=== PATIENT | female | born 1955 | race Caucasian/White ===

== ENCOUNTER → 2018-05-10 | Outpatient (CLI) | payer MEDICARE | END | disposition home or self-care (01) | LOC: LABWHC1 12:40 | PROVIDERS: ATTEND Physical Medicine & Rehabilitation | DX: M17.0 Bilateral primary osteoarthritis of knee (principal); M53.3 Sacrococcygeal disorders, not elsewhere classified; M79.1 Myalgia; M51.37 Other intervertebral disc degeneration, lumbosacral region; M47.817 Spondylosis without myelopathy or radiculopathy, lumbosacral region; M54.2 Cervicalgia; M54.81 Occipital neuralgia; G44.221 Chronic tension-type headache, intractable | CPT/HCPCS: 36415; 84155 ==

== ENCOUNTER → 2020-06-24 | Outpatient (CLI) | payer MEDICARE ==
--- NOTE | 2020-06-24 17:38 | CT ---
EXAMINATION TYPE: CT abdomen wo/w con DATE OF EXAM: 06/24/2020 COMPARISON: None HISTORY: abn MR, renal mass CT DLP: 2260 mGycm Automated exposure control for dose reduction was used. TECHNIQUE: Helical acquisition of images was performed from the lung bases through the top of iliac crest to include entire abdomen. CONTRAST: Performed with Oral Contrast and without and with IV Contrast, patient injected with 100 mL of Isovue 300. FINDINGS: LUNG BASES: Left basilar subsegmental atelectasis. LIVER/GB: Normal. PANCREAS: Normal. SPLEEN: Normal. ADRENALS: 1.7 cm right adrenal benign adenoma. Left adrenal gland normal. KIDNEYS: The right kidney upper pole posterior cortical 3.9 x 3.9 cm heterogenous, round, expansile m ass with no evidence of intralesional fat or calcification. The mass demonstrates strong enhancement during the cortical medullary phase, and enhancement less than renal parenchyma on nephrogenic phase. There is mild hazy mass border superiorly and peripherally with mild stranding of the perinephric fa t. There is bulging into the renal sinus fat. There is no extension to Gerota's fascia or right adren al gland. No involvement of the renal vein. Left renal exophytic lower pole nonenhancing simple cyst. There is no hydronephrosis bilaterally. BOWEL: Visualized bowel is nonobstructed. LYMPH NODES: No lymphadenopathy. PERITONEUM: No free air. No peritoneal thickening. OSSEOUS STRUCTURES: No aggressive osseous destructive lesions. There is increased thoracic lordosis and diffuse degenerative changes of the visualized spine. VASCULATURE no abdominal aortic aneurysm. IMPRESSION: 1. Right renal upper pole strongly enhancing 3.9 cm solid renal mass most likely represents clear ce ll renal cell carcinoma. Less likely differential includes oncocytoma or lipid poor AML. Hazy border and mild stranding of the perinephric fat is seen concerning for perinephric fat invasion. There is n o involvement of Gerota's fascia, the right adrenal gland, the renal vein, or IVC. No lymphadenopathy is seen. 2. Benign right adrenal adenoma.
== END | disposition home or self-care (01) ==
LOC: RADCTMAIN 12:33
PROVIDERS: ATTEND Family Medicine
DX: N28.89 Other specified disorders of kidney and ureter (principal); D35.01 Benign neoplasm of right adrenal gland
CPT/HCPCS: 82565; 84520; 74170; 36415; Q9967

== ENCOUNTER → 2020-07-17 | Outpatient (CLI) | payer MEDICARE ==
--- NOTE | 2020-07-17 12:40 | XR ---
EXAMINATION TYPE: XR chest 2V DATE OF EXAM: 07/17/2020 COMPARISON: 11/18/14 HISTORY: Shortness of breath TECHNIQUE: Frontal and lateral views of the chest are obtained. FINDINGS: Scattered senescent parenchymal changes noted. Hyperinflation compatible with COPD. Scattered areas of nodular infiltrate may reflect underlying pneumonia. Pulmonary nodules uncertain e tiology difficult to exclude. Heart size is stable. Mediastinal structures are stable and grossly unremarkable. No evidence for hilar prominence. Degenerative changes dorsal spine. IMPRESSION: 1. Scattered areas of nodular infiltrate may reflect underlying pneumonia. Pulmonary nodules uncertai n etiology difficult to exclude.
[2020-07-17 13:44] LABS: Basophils % (A) 1 %; Eosinophils # (A) 0.2 k/uL (0-0.7); Eosinophils % (A) 3 %; HCT 44.1 % (34.0-46.0); HGB 14.3 gm/dL (11.4-16.0); Lymphocytes # (A) 1.3 k/uL (1.0-4.8); Lymphocytes % (A) 23 %; MCH 29.1 pg (25.0-35.0); MCHC 32.4 g/dL (31.0-37.0); MCV 89.8 fL (80.0-100.0); Mean Platelet Volume 8.9; Monocytes # (A) 0.3 k/uL (0-1.0); Monocytes % (A) 6 %; Neutrophils # (A) 3.5 k/uL (1.3-7.7); Neutrophils % (A) 64 %; Platelet Count 476 k/uL (150-450); RBC 4.92 m/uL (3.80-5.40); RDW 14.6 % (11.5-15.5); WBC 5.5 k/uL (3.8-10.6)
[2020-07-17 14:34] LABS: Appearance,Urine Cloudy (Clear); Bilirubin,Urine Negative (Negative); Blood,Urine Negative (Negative); Color,Urine Yellow; Glucose,Urine (UA) Negative (Negative); Hyaline Casts,Urine 3 /lpf (0-2); Ketones,Urine Negative (Negative); Leukocyte Esterase,Urine Trace (Negative); Mucus,Urine Many /hpf; Nitrite,Urine Negative (Negative); PH, Urine 5.5 (5.0-8.0); Protein,Urine Trace (Negative); RBC,Urine 15 /hpf (0-5); Specific Gravity,Urine 1.028 (1.001-1.035); Squamous Epithelial Cell,Urine 1 /hpf (0-4); WBC,Urine 2 /hpf (0-5)
[2020-07-17 15:02] LABS: Potassium 4.6 mmol/L (3.5-5.1)
== END | disposition home or self-care (01) ==
LOC: LABPAT 11:13
PROVIDERS: ATTEND Urology
DX: Z01.818 Encounter for other preprocedural examination (principal); D41.01 Neoplasm of uncertain behavior of right kidney; E27.9 Disorder of adrenal gland, unspecified; R91.8 Other nonspecific abnormal finding of lung field
CPT/HCPCS: 36415; 71046; 80048; 81001; 82088; 82533; 83835; 84244; 85025

== ENCOUNTER 2020-07-24 05:38 | Inpatient (IN) | payer MEDICARE ==
[2020-07-20 13:51] VITALS: BMI 39.3
--- NOTE | 2020-07-23 11:30 | P.HPIHPCON ---
History of Present Illness H&P Date: 07/23/20 Chief Complaint: Right-sided renal mass Ms. Westfall is a 65-year-old female with history of a 3.8 cm right-sided renal mass, the mass is endophytic, with possible invasion into the Gerota's fascia. I discussed with her given the complexity of her mass she most likely we'll have to do a radical nephrectomy. Discussed with her intraoperatively I will evaluate for partial nephrectomy if fesibile. Discussed with her the risk of each approach. I discussed the risk of recurrence, I also discussed risk if she undergoes a radical nephrectomy there is a potential that she'll be on dialysis given that she'll have a solitary kidney. Also discussed the risk from anesthesia, discussed the risk which includes but not limited to injury to nearby organs which includes the liver, bowel and blood vessels. I also discussed there is a potential that this could be a benign tumor though very unlikely, given its appearance. She understood all the risk and agreed to proceed with a robotic radical nephrectomy possible partial. I also discussed with her the finding on chest x-ray which showed possible nodules, but I discussed with her CT abdomen showed no evidence of any nodules. I did discussed that these nodules have potential of being malignant but given the negative CT for less likely but cannot be completely excluded Consent for Procedure: I have explained the operation/procedure to the patient, including the risks, benefits, side effects, alternative therapies (including not receiving the proposed treatment or service), the likelihood of the patient achieving his/her goals, and potential recuperation problems for the procedure/sedation/analgesia, as well as any blood products, if indicated. I also explained to the patient the risks, benefits and side effects of the alternatives, as well as the risks related to not receiving the proposed procedure, care, treatment, or services. - Constitutional Constitutional: Denies chills, Denies fever - Respiratory Respiratory: Denies cough, Denies 7 - Gastrointestinal Gastrointestinal: Denies abdominal pain, Denies diarrhea, Denies nausea, Denies vomiting - Genitourinary (Female) Genitourinary: Denies dysuria, Denies hematuria Past Medical History Past Medical History: Cancer, Chest Pain / Angina, Heart Failure, COPD, Deep Vein Thrombosis (DVT), GERD/Reflux, Myocardial Infarction (OR), Pulmonary Embolus (PE), Renal Disease, Vascular Disorder Additional Past Medical History / Comment(s): kidney cancer, recent UTI treated with antibiotics. per clearance hx of tremors,closed head injury,hypertension and asthma Last Myocardial Infarction Date:: 2007 History of Any Multi-Drug Resistant Organisms: None Reported Past Surgical History: Section, Orthopedic Surgery Additional Past Surgical History / Comment(s): ortho surgery on right foot and both knees. Past Anesthesia/Blood Transfusion Reactions: Postoperative Nausea & Vomiting (PONV) Smoking Status: Never smoker - Past Family History Father Additional Family Medical History / Comment(s): enlarged heart, cartoid artery exploded Medications and Allergies Home Medications Medication Instructions Recorded Confirmed Type ARIPiprazole [Abilify] 2 mg PO DAILY 11/18/14 07/20/20 History Albuterol Sulfate [Proair Hfa] 1 - 2 puff INHALATION AC-SUPPER PRN 11/18/14 07/20/20 History Aspirin 81 mg PO DAILY PRN 11/18/14 07/20/20 History Budesonide-Formot 160-4.5 Mcg 2 puff INHALATION BID 11/18/14 07/20/20 History [Symbicort 160-4.5 Mcg Inhaler] FLUoxetine HCL [PROzac] 40 mg PO BID 11/18/14 07/20/20 History Furosemide [Lasix] 40 mg PO BID 11/18/14 07/20/20 History Meloxicam [Mobic] 7.5 mg PO BID 11/18/14 07/20/20 History Montelukast [Singulair] 10 mg PO DAILY 11/18/14 07/20/20 History Omeprazole [PriLOSEC] 20 mg PO AC-BRKFST 11/18/14 07/20/20 History Potassium Chloride [Klor-Con M10] 10 meq PO HS 11/18/14 07/20/20 History Pravastatin Sodium [Pravachol] 40 mg PO HS 11/18/14 07/20/20 History Pregabalin [Lyrica] 100 mg PO HS 11/18/14 07/20/20 History Tiotropium [place] [Spiriva] 18 mcg IH DAILY 11/18/14 07/20/20 History Zolpidem [Ambien] 10 mg PO HS PRN 11/18/14 07/20/20 History busPIRone HCl [Buspar] 10 mg PO BID 11/18/14 07/20/20 History clonazePAM [KlonoPIN] 2 mg PO TID 11/18/14 07/20/20 History hydrOXYzine HCL [Atarax] 25 mg PO TID PRN 11/18/14 07/20/20 History traZODone HCL 50 mg PO BID 11/18/14 07/20/20 History Atenolol [Tenormin] 50 mg PO BID #60 tab 11/21/14 07/20/20 Rx Levocetirizine Dihydrochloride 10 mg PO DAILY 07/20/20 07/20/20 History [Xyzal] Rivaroxaban [Xarelto] 10 mg PO DAILY 07/20/20 07/20/20 History fentaNYL 50MCG/HR PATCH [Duragesic 50 mcg TRANSDERM Q72H 07/20/20 07/20/20 History 50MCG/HR] Allergies Allergy/AdvReac Type Severity Reaction Status Date / Time cephalexin monohydrate Allergy Rash/Hives Verified 07/20/20 13:30 [From Keflex] codeine Allergy Unknown Verified 07/20/20 13:30 Penicillins Allergy Rash/Hives Verified 07/20/20 13:30 Sulfa (Sulfonamide Allergy Nausea & Verified 07/20/20 13:30 Antibiotics) Vomiting sulfamethoxazole Allergy Nausea & Verified 07/20/20 13:30 [From Bactrim] Vomiting & Diarrhea trimethoprim [From Bactrim] Allergy Nausea & Verified 07/20/20 13:30 Vomiting & Diarrhea Surgical - Exam - General well developed, well nourished, no distress - Respiratory normal expansion, normal respiratory effort - Abdomen Abdomen: soft, non tender - Psychiatric oriented to time, oriented to person, oriented to place Assessment and Plan Assessment: 65-year-old female with a right-sided renal mass Or for robotic radical nephrectomy on the right side possible partial nephrectomy
[~2020-07-24 05:38] MED LIST: CLINDAMYCIN 600 MG in DEXTROSE 5% IN WATER 50 ML IVPB ONE; GENTAMICIN 100 MG in SODIUM CHLORIDE 0.9% 100 ML IVPB ONE
[2020-07-24] MEDS ORDERED: DEXAMETHASONE SOD PHOSPHATE 10 MG/ML 1 ML VIAL IV ONE (05:42)
[2020-07-24] MEDS ORDERED: ONDANSETRON 4 MG/2 ML VIAL IVP ONE (05:42)
[2020-07-24] MEDS ORDERED: LIDOCAINE 1% (10MG/ML) FOR IV START INTRADERMA PRN (05:42)
[2020-07-24] MEDS ORDERED: HYDROmorphone 0.5 MG/0.5 ML SYRINGE IVP PRN (05:42)
[2020-07-24] MEDS ORDERED: HEPARIN SODIUM,PORCINE 5,000 UNIT/ML 1 ML VIAL SQ ONE (06:00)
[2020-07-24] MEDS: LACTATED RINGERS 1,000 ML IV SCH ×2 (06:23→06:32)
[2020-07-24] MEDS ORDERED: HEPARIN SODIUM,PORCINE 5,000 UNIT/ML 1 ML VIAL ONE (06:24)
[2020-07-24] MEDS ORDERED: ONDANSETRON 4 MG/2 ML VIAL ONE ×2 (06:24→08:54)
[2020-07-24] MEDS ORDERED: MIDAZOLAM 2 MG/2 ML VIAL ONE (08:54)
[2020-07-24] MEDS ORDERED: ROCURONIUM BROMIDE 10 MG/ML 5 ML VIAL IV ONE (08:54)
[2020-07-24] MEDS ORDERED: PROPOFOL 10 MG/ML 20 ML VIAL IV ONE (08:54)
[2020-07-24] MEDS ORDERED: SUCCINYLCHOLINE CHLORIDE 100 MG/5 ML SYR IV ONE (08:54)
[2020-07-24] MEDS ORDERED: LIDOCAINE 1% INJ 10MG/ML (20 ML MDV) ONE (08:54)
[2020-07-24] MEDS ORDERED: MANNITOL 25% 12.5 GM/50 ML VIAL ONE (08:54)
[2020-07-24] MEDS ORDERED: fentaNYL (PF) 50 MCG/ML 2 ML AMP ONE (08:54)
[2020-07-24] MEDS ORDERED: ALBUTEROL NEBULIZED 2.5 MG/3 ML INHALATION PRN (09:04)
[2020-07-24] MEDS ORDERED: ONDANSETRON 4 MG/2 ML VIAL IVP PRN (09:06)
[2020-07-24] MEDS ORDERED: BUPIVACAINE (PF) 0.5% 30 ML VIAL SQ ONE ×2 (09:54)
[2020-07-24] MEDS ORDERED: LACTATED RINGERS 1,000 ML IV ONE (10:38)
--- NOTE | 2020-07-24 12:08 | P.OP ---
Date of Procedure: 07/24/20 Preoperative Diagnosis: right renal mass Postoperative Diagnosis: same Procedure(s) Performed: robotic-assisted partial nephrectomy on the right Implants: none Anesthesia: MERE Surgeon: Noel Farris Development Vice President #1: Farshad Giles Estimated Blood Loss (ml): 75 Pathology: other (right renal tumor) Condition: stable Disposition: PACU Indications for Procedure: Ms. Westfall is a 65-year-old female with history of a 3.8 cm right-sided renal mass, the mass is endophytic, with possible invasion into the Gerota's fascia. I discussed with her given the complexity of her mass she most likely we'll have to do a radical nephrectomy. Discussed with her intraoperatively I will evaluate for partial nephrectomy if fesibile. Discussed with her the risk of each approach. I discussed the risk of recurrence, I also discussed risk if she undergoes a radical nephrectomy there is a potential that she'll be on dialysis given that she'll have a solitary kidney. Also discussed the risk from anesthesia, discussed the risk which includes but not limited to injury to nearby organs which includes the liver, bowel and blood vessels. I also discussed there is a potential that this could be a benign tumor though very unlikely, given its appearance. She understood all the risk and agreed to proceed with a robotic radical nephrectomy possible partial. I also discussed with her the finding on chest x-ray which showed possible nodules, but I discussed with her CT abdomen showed no evidence of any nodules. I did discussed that these nodules have potential of being malignant but given the negative CT for less likely but cannot be completely excluded Operative Findings: right-sided upper pole renal tumor, more than 70% endophytic Description of Procedure: The patient was taken to the operating room . General anesthesia was induced. She was prepped and draped in sterile fashion, and was placed in modified flank position . All pressure points were padded. The abdominal insufflation was achieved with the Veress needle. A 8 mm camera port was placed. Robotic trocars and title assistant ports were placed under direct vision. a 5 mm liver retractor was placed. . The robot was docked into place. she had adhesions along the right upper quadrant that were taken down. The colon was mobilized medially by incising along the white line of Toldt. Next the duodenum was kocherized. At this time the vena cava was exposed. Next the ureter was retracted anteriorly off the psoas muscle. Dissection proceeded cranially towards the renal hilum. the renal artery and the vein were exposed and the surrounding tissue was dissected off of them to prepare them for clamping. At this time the incision was made along the Gerota's fat and the kidney was completely defatted. At this time the tumor was visualized and the tumor edges could be defined from normal parenchyma. Given this finding decision was made to attempt partial nephrectomy. The tumor edges were scored using cautery. At this time a 2 bulldog clamps was placed at the artery followed by bulldog clamp was placed at the vein. The tumor was enucleated sharply with the use of point cautery at points of bleeding. The area of defect was closed in 2 layers using 3-0V lock for the inner layer followed by a 2-0V lock for the outer layer ensuring that the the defect was closed. Hemo-clipp was placed once the stitches were taken out of the capsule. At this time the clamps were removed and there was no evidence of bleeding from the kidney. At this time Gerona fat posteriorly and inferiorly were reapproximated using 3-0V lock to ensure that the kidneys this pexied in place. tumor was placed in a bag. Hemostatic agents was placed at the surgical bed. BRE drain was placed through the fourth arm. At this time the robot was de-docked. The the fascia at title assistant port was closed using the Guzman [place]. Skin was closed with subcuticular sutures and dermabond. The patient was awoken from general anesthesia in stable condition. Please refer to the final pathology report for final diagnosis
[2020-07-24] MEDS: methocarbamoL 750 MG TAB PO SCH ×3 (14:15→23:48)
[2020-07-24] MEDS: D5-0.45% NACL WITH KCL 20MEQ/L 1,000 ML IV SCH ×3 (16:01→23:58)
[2020-07-24] MEDS: HYDROmorphone 1 MG/ML 1 ML SYRINGE IVP PRN ×2 (16:01→19:14)
[2020-07-24] MEDS: HEPARIN SODIUM,PORCINE 5,000 UNIT/ML 1 ML VIAL SQ SCH ×2 (16:01→23:48)
[2020-07-24] MEDS: clonazePAM 1 MG TAB PO SCH ×2 (17:30→23:47)
[2020-07-24 17:47] LABS: HGB 13.4 gm/dL (11.4-16.0); Hypochromasia Slight; MCH 28.8 pg (25.0-35.0); MCHC 31.1 g/dL (31.0-37.0); MCV 92.5 fL (80.0-100.0); Mean Platelet Volume 8.8; Platelet Count 349 k/uL (150-450); RBC 4.65 m/uL (3.80-5.40); RDW 14.6 % (11.5-15.5); WBC 12.3 k/uL (3.8-10.6)
[2020-07-24] MEDS: SYMBICORT 160-4.5 MCG INHALER INHALATION SCH (19:46)
[2020-07-24] MEDS ORDERED: POTASSIUM CHLORIDE ER 10 MEQ TAB.ER.PRT PO SCH (21:00)
[2020-07-24] MEDS: PREGABALIN 100 MG CAP PO SCH (21:16)
[2020-07-24] MEDS: FLUoxetine HCL 20 MG CAP PO SCH (21:16)
[2020-07-24] MEDS: MELOXICAM 7.5 MG TAB PO SCH (21:16)
[2020-07-24] MEDS: atenoloL 50 MG TAB PO SCH (21:17)
[2020-07-24] MEDS: traZODone HCL 50 MG TAB PO SCH (21:17)
[2020-07-24] MEDS: busPIRone HCl 10 MG TAB PO SCH (21:17)
[2020-07-24] MEDS: PRAVASTATIN SODIUM 40 MG TAB PO SCH (21:17)
[2020-07-25] MEDS: HYDROmorphone 1 MG/ML 1 ML SYRINGE IVP PRN ×2 (00:23→05:02)
[2020-07-25 07:03] LABS: HCT 37.9 % (34.0-46.0); HGB 12.1 gm/dL (11.4-16.0); MCH 29.5 pg (25.0-35.0); Mean Platelet Volume 9.5; Platelet Count 351 k/uL (150-450); RBC 4.11 m/uL (3.80-5.40); WBC 11.9 k/uL (3.8-10.6)
[2020-07-25 07:11] LABS: Calcium 8.2 mg/dL (8.4-10.2); Potassium 5.3 mmol/L (3.5-5.1)
[2020-07-25] MEDS: SYMBICORT 160-4.5 MCG INHALER INHALATION SCH ×2 (08:32→19:02)
[2020-07-25] MEDS: IPRATROPIUM 0.5 MG/2.5 ML NEBU INHALATION SCH ×4 (08:32→19:02)
[2020-07-25] MEDS: D5-0.45% NACL WITH KCL 20MEQ/L 1,000 ML IV SCH (08:35)
[2020-07-25] MEDS: MELOXICAM 7.5 MG TAB PO SCH ×2 (08:36→21:00)
[2020-07-25] MEDS: MONTELUKAST 10 MG TAB PO SCH (08:36)
[2020-07-25] MEDS: PANTOPRAZOLE 40 MG TABLET PO SCH (08:36)
[2020-07-25] MEDS: busPIRone HCl 10 MG TAB PO SCH ×2 (08:37→21:00)
[2020-07-25] MEDS: traZODone HCL 50 MG TAB PO SCH ×2 (08:37→21:00)
[2020-07-25] MEDS: FAMOTIDINE 20 MG TAB PO SCH (08:37)
[2020-07-25] MEDS: LORATADINE 10 MG TAB PO SCH (08:37)
[2020-07-25] MEDS: atenoloL 50 MG TAB PO SCH ×2 (08:37→20:54)
[2020-07-25] MEDS: clonazePAM 1 MG TAB PO SCH ×3 (08:37→21:00)
[2020-07-25] MEDS: methocarbamoL 750 MG TAB PO SCH ×4 (08:38→21:21)
[2020-07-25] MEDS: HEPARIN SODIUM,PORCINE 5,000 UNIT/ML 1 ML VIAL SQ SCH ×3 (08:38→23:22)
[2020-07-25] MEDS: ARIPiprazole 2 MG TAB PO SCH (08:38)
[2020-07-25] MEDS: FLUoxetine HCL 20 MG CAP PO SCH ×2 (09:02→21:00)
--- NOTE | 2020-07-25 09:06 | P.PN ---
Subjective Progress Note Date: 07/25/20 Principal diagnosis: POD #1, s/p right partial nephrectomy The patient underwent a right partial nephrectomy yesterday. Her condition is stable. She is afebrile with stable vital signs. Urinalysis was good. She reports incisional discomfort. She has not yet ambulated. She tolerated a small amount of breakfast. Objective - Vital Signs Vital signs: Vital Signs Temp 97.7 F 07/25/20 07:00 Pulse 58 L 07/25/20 08:50 Resp 14 07/25/20 07:00 BP 90/55 07/25/20 07:00 Pulse Ox 92 L 07/25/20 07:00 Intake & Output 07/24/20 07/25/20 07/25/20 18:59 06:59 18:59 Intake Total 2106.5 2000 Output Total 445 3585 Balance 1661.5 -1585 Intake: IV 2106.5 Intake, IV Titration 2000 Amount D5-0.45% NaCl with KCl 2000 20Meq/l 1,000 ml @ 125 mls/hr IV .Q8H [facility] Rx#: [id number] Output: Drainage 45 85 Right Lower Abdomen 45 85 Urine 300 3500 Estimated Blood Loss 100 Other: Voiding Method Indwelling Catheter Indwelling Catheter - Constitutional General appearance: Present: cooperative, no acute distress - Gastrointestinal Gastrointestinal Comment(s): Soft, non-distended. Incisions clean, dry, and intact. - Psychiatric Psychiatric: Present: A&O x's 3 - Labs CBC & Chem 7: 07/25/20 05:25 07/25/20 05:25 Labs: Abnormal Lab Results - Last 24 Hours (Table) 07/24/20 07/25/20 07/25/20 Range/Units 17:36 05:25 05:25 WBC 12.3 H 11.9 H (3.8-10.6) k/uL Sodium 136 L (137-145) mmol/L Potassium 5.3 H (3.5-5.1) mmol/L Glucose 189 H (74-99) mg/dL Calcium 8.2 L (8.4-10.2) mg/dL Assessment and Plan (1) Right renal mass Current Visit: Yes Status: Acute Code(s): N28.89 - OTHER SPECIFIED DISORDERS OF KIDNEY AND URETER SNOMED Code(s): 937969910 Plan: The Escudero catheter will be removed. Potassium supplementation will be held. Ambulation and pulmonary toilet was stressed.
[2020-07-25] MEDS: DEXTROSE 5%-0.45% NACL 1,000 ML IV SCH ×2 (10:03→21:03)
[2020-07-25] MEDS: PRAVASTATIN SODIUM 40 MG TAB PO SCH (21:00)
[2020-07-25] MEDS: PREGABALIN 100 MG CAP PO SCH (21:00)
[2020-07-25] MEDS: LACTATED RINGERS 1,000 ML IV SCH (22:09)
[2020-07-26 03:03] VITALS: TEMP 98.1
[2020-07-26] MEDS: DEXTROSE 5%-0.45% NACL 1,000 ML IV SCH (05:12)
[2020-07-26] MEDS: IPRATROPIUM 0.5 MG/2.5 ML NEBU INHALATION SCH ×2 (07:32→10:39)
[2020-07-26] MEDS: SYMBICORT 160-4.5 MCG INHALER INHALATION SCH (07:32)
[2020-07-26] MEDS: HEPARIN SODIUM,PORCINE 5,000 UNIT/ML 1 ML VIAL SQ SCH (08:03)
[2020-07-26 08:04] LABS: Calcium 8.2 mg/dL (8.4-10.2); Potassium 4.4 mmol/L (3.5-5.1)
[2020-07-26] MEDS: MONTELUKAST 10 MG TAB PO SCH (08:04)
[2020-07-26] MEDS: FLUoxetine HCL 20 MG CAP PO SCH (08:04)
[2020-07-26] MEDS: busPIRone HCl 10 MG TAB PO SCH (08:04)
[2020-07-26] MEDS: PANTOPRAZOLE 40 MG TABLET PO SCH (08:04)
[2020-07-26] MEDS: MELOXICAM 7.5 MG TAB PO SCH (08:04)
[2020-07-26] MEDS: FAMOTIDINE 20 MG TAB PO SCH (08:05)
[2020-07-26] MEDS: traZODone HCL 50 MG TAB PO SCH (08:05)
[2020-07-26] MEDS: clonazePAM 1 MG TAB PO SCH (08:05)
[2020-07-26] MEDS: methocarbamoL 750 MG TAB PO SCH ×2 (08:05→13:07)
[2020-07-26] MEDS: LORATADINE 10 MG TAB PO SCH (08:05)
[2020-07-26] MEDS: atenoloL 50 MG TAB PO SCH (08:05)
[2020-07-26] MEDS: ARIPiprazole 2 MG TAB PO SCH (08:06)
[2020-07-26 08:18] VITALS: BP 106/65; PULSE 70; RESP 19
--- NOTE | 2020-07-26 10:38 | P.DS ---
Providers Date of admission: 07/24/20 05:38 Expected date of discharge: 07/26/20 Attending physician: Noel Farris MD Primary care physician: Shey Harrison - Discharge Diagnosis(es) (1) Right renal mass Current Visit: Yes Status: Acute Hospital Course: On the day of admission, the patient underwent a robotic-assisted laparoscopic right partial nephrectomy. The procedure was difficult, but successful and preserving the normal portion of the kidney. The postoperative course was unremarkable. The patient remained afebrile with stable vital signs throughout her course. On the first postoperative day, the Escudero catheter was removed and she began ambulating. On the second postoperative day, she was tolerating diet and ambulating. Her pain was controlled with Mobitz. The abdomen was soft and non-distended. The incisions were clean and dry. BRE drainage was minimal. Procedures: Robotic-assisted laparoscopic right partial nephrectomy on 07/24/2020 Patient Condition at Discharge: Good Plan - Discharge Summary Discharge Rx Participant: No New Discharge Prescriptions: New Hydrocodone/Acetaminophen [Baxter 5-325] 1 - 2 each PO Q4HR PRN #6 tab PRN Reason: Pain No Action Budesonide-Formot 160-4.5 Mcg [Symbicort 160-4.5 Mcg Inhaler] 2 puff INHALATION BID Montelukast [Singulair] 10 mg PO DAILY Meloxicam [Mobic] 7.5 mg PO BID Aspirin 81 mg PO DAILY PRN PRN Reason: Pain hydrOXYzine HCL [Atarax] 25 mg PO TID PRN PRN Reason: Itching Omeprazole [PriLOSEC] 20 mg PO AC-BRKFST Furosemide [Lasix] 40 mg PO BID FLUoxetine HCL [PROzac] 40 mg PO BID traZODone HCL 50 mg PO BID clonazePAM [KlonoPIN] 2 mg PO TID busPIRone HCl [Buspar] 10 mg PO BID Pregabalin [Lyrica] 100 mg PO HS ARIPiprazole [Abilify] 2 mg PO DAILY Zolpidem [Ambien] 10 mg PO HS PRN PRN Reason: Insomnia Pravastatin Sodium [Pravachol] 40 mg PO HS Tiotropium [place] [Spiriva] 18 mcg IH DAILY Potassium Chloride [Klor-Con M10] 10 meq PO HS Albuterol Sulfate [Proair Hfa] 1 - 2 puff INHALATION AC-SUPPER PRN PRN Reason: Shortness Of Breath Atenolol [Tenormin] 50 mg PO BID #60 tab fentaNYL 50MCG/HR PATCH [Duragesic 50MCG/HR] 50 mcg TRANSDERM Q72H Levocetirizine Dihydrochloride [Xyzal] 10 mg PO DAILY Rivaroxaban [Xarelto] 10 mg PO DAILY amantadine HCL [Amantadine] 1 tab PO DAILY Famotidine [Pepcid] 1 tab PO DAILY Discharge Medication List ARIPiprazole [Abilify] 2 mg PO DAILY 11/18/14 [History] Albuterol Sulfate [Proair Hfa] 1 - 2 puff INHALATION AC-SUPPER PRN 11/18/14 [History] Aspirin 81 mg PO DAILY PRN 11/18/14 [History] Budesonide-Formot 160-4.5 Mcg [Symbicort 160-4.5 Mcg Inhaler] 2 puff INHALATION BID 11/18/14 [History] FLUoxetine HCL [PROzac] 40 mg PO BID 11/18/14 [History] Furosemide [Lasix] 40 mg PO BID 11/18/14 [History] Meloxicam [Mobic] 7.5 mg PO BID 11/18/14 [History] Montelukast [Singulair] 10 mg PO DAILY 11/18/14 [History] Omeprazole [PriLOSEC] 20 mg PO AC-BRKFST 11/18/14 [History] Potassium Chloride [Klor-Con M10] 10 meq PO HS 11/18/14 [History] Pravastatin Sodium [Pravachol] 40 mg PO HS 11/18/14 [History] Pregabalin [Lyrica] 100 mg PO HS 11/18/14 [History] Tiotropium [place] [Spiriva] 18 mcg IH DAILY 11/18/14 [History] Zolpidem [Ambien] 10 mg PO HS PRN 11/18/14 [History] busPIRone HCl [Buspar] 10 mg PO BID 11/18/14 [History] clonazePAM [KlonoPIN] 2 mg PO TID 11/18/14 [History] hydrOXYzine HCL [Atarax] 25 mg PO TID PRN 11/18/14 [History] traZODone HCL 50 mg PO BID 11/18/14 [History] Atenolol [Tenormin] 50 mg PO BID #60 tab 11/21/14 [Rx] Levocetirizine Dihydrochloride [Xyzal] 10 mg PO DAILY 07/20/20 [History] Rivaroxaban [Xarelto] 10 mg PO DAILY 07/20/20 [History] fentaNYL 50MCG/HR PATCH [Duragesic 50MCG/HR] 50 mcg TRANSDERM Q72H 07/20/20 [History] Famotidine [Pepcid] 1 tab PO DAILY 07/24/20 [History] amantadine HCL [Amantadine] 1 tab PO DAILY 07/24/20 [History] Hydrocodone/Acetaminophen [Baxter 5-325] 1 - 2 each PO Q4HR PRN #6 tab 07/26/20 [Rx] Follow up Appointment(s)/Referral(s): Noel Farris MD [STAFF PHYSICIAN] - 1 Week Activity/Diet/Wound Care/Special Instructions: Diet as tolerated. No driving for 1 week. No strenuous activity. Okay to shower on 07/27/2020. Discharge Disposition: HOME SELF-CARE
== END 2020-07-26 14:51 | disposition home or self-care (01) | DRG 658 ==
LOC: 2ORMAIN 05:38 → 4SSUR 12:51
PROVIDERS: ADMIT Urology; ATTEND Urology
PROC: 8E0W4CZ Robotic Assisted Procedure of Trunk Region, Percutaneous Endoscopic Approach (ICD-10-PCS; principal; 2020-07-24 07:30)
PROC: 0TB04ZZ Excision of Right Kidney, Percutaneous Endoscopic Approach (ICD-10-PCS; principal; 2020-07-24 07:30)
DX: C64.1 Malignant neoplasm of right kidney, except renal pelvis (principal); I50.9 Heart failure, unspecified; I10 Essential (primary) hypertension; J44.9 Chronic obstructive pulmonary disease, unspecified; R25.1 Tremor, unspecified; G89.29 Other chronic pain; M54.5 Low back pain; K21.9 Gastro-esophageal reflux disease without esophagitis; I25.2 Old myocardial infarction; Z79.01 Long term (current) use of anticoagulants; Z79.82 Long term (current) use of aspirin; Z79.51 Long term (current) use of inhaled steroids; Z79.899 Other long term (current) drug therapy; Z88.1 Allergy status to other antibiotic agents; Z88.5 Allergy status to narcotic agent; Z88.0 Allergy status to penicillin; Z88.2 Allergy status to sulfonamides; Z98.890 Other specified postprocedural states; Z86.718 Personal history of other venous thrombosis and embolism; Z86.711 Personal history of pulmonary embolism; Z87.440 Personal history of urinary (tract) infections; Z87.828 Personal history of other (healed) physical injury and trauma; Z82.49 Family history of ischemic heart disease and other diseases of the circulatory system
CPT/HCPCS: 80048; 85027; 86850; 86900; 86901; 88307; 88341; 88342; 94640

== ENCOUNTER → 2021-04-13 | Outpatient (CLI) | payer MEDICARE ==
--- NOTE | 2021-04-13 13:12 | CTL ---
EXAMINATION TYPE: CT Low Dose Lung DATE OF EXAM ORDERED: 04/13/2021 HISTORY: . Lung cancer screening CT DLP: 122.[address] CTDI: 4.0 mGy Automated exposure control for dose reduction was used. SCREENING VISIT: Initial study COMPARISON: CTA chest November 18, 2014 TECHNIQUE: Low dose computed tomography scan was performed through the chest at 1 mm thick sections a nd reconstructed images in the coronal plane at [address] DIAGNOSTIC QUALITY: Satisfactory FINDINGS: LUNG NODULES: None. LUNGS: COPD: Severity: Mild Fibrosis: Severity: None Lymph nodes: None Other findings: None RIGHT PLEURAL SPACE: Effusion: None Calcification: None Thickening: None Pneumothorax: None LEFT PLEURAL SPACE: Effusion: None Calcification: None Thickening: None Pneumothorax: None HEART: Heart Size: Normal Coronary calcification: Focal mild to moderate in the LAD Pericardial effusion: None OTHER FINDINGS: Upper abdomen: None Bony thorax: Exaggerated curvature lower thoracic spine Supraclavicular region: None Other: None IMPRESSION: No suspicious nodules. CT LUNG RAD AND CT CHEST RECOMMENDATION: Lung-Rad 1 Negative: Continue annual screening with LDCT in 12 months. S Modifier (other clinically significant findings): None
== END | disposition home or self-care (01) ==
LOC: RADCTMAIN 11:40
PROVIDERS: ATTEND Family Medicine
DX: Z12.2 Encounter for screening for malignant neoplasm of respiratory organs (principal)
CPT/HCPCS: 71271

== ENCOUNTER → 2022-07-07 | Outpatient (CLI) | payer MEDICARE ==
--- NOTE | 2022-07-08 08:19 | CT ---
EXAMINATION TYPE: CT abdomen pelvis w con CT DLP: 2670.40 mGycm, Automated exposure control for dose reduction was used. DATE OF EXAM: 07/07/2022 7:26 PM COMPARISON: CT abdomen pelvis most recent from 06/24/2020, CT chest 11/18/2014. CLINICAL INDICATION:Female, 67 years old with history of C64.1 N18.9 Z85.528; Renal Cell Cancer TECHNIQUE: Axial CT of the abdomen and pelvis. Sagittal and coronal reformats were created on a [employer] workstation. Contrast used:80 mL of Isovue 300 with IV Contrast, Oral contrast used: with Oral Contrast FINDINGS: LOWER CHEST: Unremarkable ABDOMEN LIVER: Unremarkable GALLBLADDER AND BILE DUCTS: Unremarkable. PANCREAS: Unremarkable. SPLEEN: Unremarkable. ADRENAL GLANDS: Right adrenal nodule measuring 37 Hounsfield units and 1.9 cm is consistent with cynthia gn lipid rich adrenal adenoma when comparing to 11/18/2014. The left adrenal gland is unremarkable. KIDNEYS AND URETERS: Postsurgical changes in the right kidney. There is no evidence of recurrence. No renal calculi are obstructive uropathy. PELVIS BLADDER: Unremarkable REPRODUCTIVE: Unremarkable. ABDOMEN & PELVIS STOMACH AND BOWEL: No evidence of bowel obstruction. Second portion duodenal diverticulum is noted. PERITONEUM: No evidence of pneumoperitoneum or free fluid. VASCULATURE: No evidence of aortic aneurysm. MUSCULOSKELETAL: No acute osseous abnormalities, electrical device with leads entering the spine are present and intact. Multilevel disc degeneration changes are present throughout the spine with osteop hytes, vacuum disc phenomenon and scattered disc space narrowing. Facet joint arthropathy is seen thr oughout the spine most pronounced in the lower lumbar spine LYMPH NODES: No gross evidence for lymphadenopathy. SOFT TISSUE/ABDOMINAL WALL: Small fat-containing umbilical hernia. IMPRESSION: 1. Postsurgical changes to the right kidney superior pole without evidence of recurrence or metastat ic disease. 2. Left adrenal lipid rich benign adenoma present dating back to 11/18/2014. 3. Second portion duodenal diverticulum.
== END | disposition home or self-care (01) ==
LOC: RADCTMAIN 17:31
PROVIDERS: ATTEND Family Medicine
DX: C64.1 Malignant neoplasm of right kidney, except renal pelvis (principal); N18.9 Chronic kidney disease, unspecified
CPT/HCPCS: 82565; 84520; 74177; 36415; Q9967 ×2

== ENCOUNTER 2023-09-14 14:34 | Observation (INO) | payer MEDICARE ==
--- NOTE | 2023-09-14 15:24 | XR ---
EXAMINATION TYPE: XR chest 2V DATE OF EXAM: 09/14/2023 COMPARISON: 07/17/20 HISTORY: Shortness of breath TECHNIQUE: Frontal and lateral views of the chest are obtained. FINDINGS: Scattered senescent parenchymal changes noted. No evidence for infiltrate. No evidence for atelectasis. Heart size is stable. Mediastinal structures are stable and grossly unremarkable. No evidence for hilar prominence. Degenerative changes dorsal spine. IMPRESSION: 1. No evidence for acute pulmonary disease.
--- NOTE | 2023-09-14 15:41 | ED ---
Chest Pain HPI - General Chief Complaint: Chest Pain Stated Complaint: heart attack symptoms Time Seen by Provider: 09/14/23 15:40 Source: patient Mode of arrival: wheelchair Limitations: no limitations - History of Present Illness Initial Comments: 68-year-old female presenting with chief complaint of chest pain. Symptoms started last night. She admits to shortness of breath. Admits to nonproductive cough that she has had for several days prior. Patient states that the pain is sharp and at times goes up her neck. She admits to positive nausea with no vomiting. No lower extremity swelling. No fevers or chills. No palpitations or weakness. - Related Data Home Medications Medication Instructions Recorded Confirmed Albuterol Sulfate [Proair Hfa] 1 - 2 puff INHALATION RT-QID PRN 11/18/14 09/14/23 FLUoxetine HCL [PROzac] 40 mg PO BID 11/18/14 09/14/23 Montelukast [Singulair] 10 mg PO DAILY 11/18/14 09/14/23 Omeprazole [PriLOSEC] 20 mg PO BID 11/18/14 09/14/23 Pravastatin Sodium [Pravachol] 40 mg PO HS 11/18/14 09/14/23 traZODone HCL 50 mg PO HS 11/18/14 09/14/23 Levocetirizine Dihydrochloride 5 mg PO DAILY 07/20/20 09/14/23 [Xyzal] Rivaroxaban [Xarelto] 10 mg PO DAILY 07/20/20 09/14/23 Famotidine [Pepcid] 20 mg PO DAILY 07/24/20 09/14/23 ARIPiprazole [Abilify] 10 mg PO HS 09/14/23 09/14/23 Atenolol [Tenormin] 50 mg PO DAILY 09/14/23 09/14/23 Furosemide [Lasix] 40 mg PO DAILY 09/14/23 09/14/23 Multivitamins, Thera [Multivitamin 1 tab PO DAILY 09/14/23 09/14/23 (formulary)] Potassium Chloride ER [K-Dur 10] 10 meq PO DAILY 09/14/23 09/14/23 Ubidecarenone [Coenzyme Q10] 100 mg PO DAILY 09/14/23 09/14/23 busPIRone HCL 15 mg PO TID 09/14/23 09/14/23 clonazePAM [KlonoPIN] 0.5 mg PO TID 09/14/23 09/14/23 Allergies Allergy/AdvReac Type Severity Reaction Status Date / Time cephalexin monohydrate Allergy Rash/Hives Verified 09/14/23 19:07 [From Keflex] codeine Allergy Unknown Verified 09/14/23 19:07 Penicillins Allergy Rash/Hives Verified 09/14/23 19:07 Sulfa (Sulfonamide Allergy Rash, Verified 09/14/23 19:07 Antibiotics) hives, Nausea & Vomiting & Diarrhea sulfamethoxazole Allergy Rash, Verified 09/14/23 19:07 [From Bactrim] hives, Nausea & Vomiting & Diarrhea trimethoprim [From Bactrim] Allergy Rash, Verified 09/14/23 19:07 hives, Nausea & Vomiting & Diarrhea Review of Systems ROS Statement: Those systems with pertinent positive or pertinent negative responses have been documented in the HPI. ROS Other: All systems not noted in ROS Statement are negative. EKG Findings - EKG Comments: EKG Findings:: Sinus bradycardia ventricular rate 59. MN interval. QRS 102. QT 403. QTC 403. No ST deviation. Past Medical History Past Medical History: Chest Pain / Angina, Heart Failure, COPD, Myocardial Infarction ([place]), Pulmonary Embolus ([place]) Additional Past Medical History / Comment(s): kidney cancer, recent UTI treated with antibiotics. per clearance hx of tremors,closed head injury,hypertension and asthma Last Myocardial Infarction Date:: 2007 History of Any Multi-Drug Resistant Organisms: None Reported Past Surgical History: Section, Orthopedic Surgery Additional Past Surgical History / Comment(s): ortho surgery on right foot and both knees. Past Anesthesia/Blood Transfusion Reactions: Postoperative Nausea & Vomiting (PONV) Past Psychological History: Anxiety, Depression Smoking Status: Never smoker Past Alcohol Use History: None Reported Past Drug Use History: None Reported - Past Family History Father Additional Family Medical History / Comment(s): enlarged heart, cartoid artery exploded General Exam - General Exam Comments Initial Comments: Visual Physical Exam Vital signs reviewed General: Well-appearing, nontoxic, no acute distress. Head: Normocephalic, atraumatic Eyes: PERRLA, EOMI ENT: Airway patent Chest: Nonlabored breathing Skin: No visual rash, normal skin tone Neuro: Alert and oriented 3 Musculoskeletal: No gross abnormalities Limitations: no limitations General appearance: alert, in no apparent distress Head exam: Present: atraumatic, normocephalic, normal inspection Eye exam: Present: normal appearance, EOMI Neck exam: Present: normal inspection, full ROM Respiratory exam: Present: normal lung sounds bilaterally. Absent: respiratory distress, wheezes, rales, rhonchi, stridor Cardiovascular Exam: Present: regular rate, normal rhythm, normal heart sounds. Absent: systolic murmur, diastolic murmur, rubs, gallop, clicks Neurological exam: Present: alert, oriented X3 Psychiatric exam: Present: normal affect, normal mood Skin exam: Present: warm, dry, intact, normal color. Absent: rash Course Vital Signs 09/14/23 09/14/23 14:37 18:02 Temperature 96.9 F L Pulse Rate 66 55 L Respiratory 16 18 Rate Blood Pressure 145/75 123/74 O2 Sat by Pulse 96 95 Oximetry Chest Pain MDM - MDM Was pt. sent in by a medical professional or institution (, PA, STEEL F[employer]ICATING SUPERVISOR, urgent care, hospital, or assisted...) When possible be specific @ -No Did you speak to anyone other than the patient for history (EMS, parent, family, police, friend...)? What history was obtained from this source @ -No Did you review nursing and triage notes (agree or disagree)? Why? @ -I reviewed and agree with nursing and triage notes Were old charts reviewed (outside hosp., previous admission, EMS record, old EKG, old radiological studies, urgent care reports/EKG's, assisted records)? Report findings @ -No old charts were reviewed Differential Diagnosis (chest pain, altered mental status, abdominal pain women, abdominal pain men, vaginal bleeding, weakness, fever, dyspnea, syncope, headache, dizziness, GI bleed, back pain, seizure, CVA, palpatations, mental health, musculoskeletal)? @ -MDM Differential Chest Pain: Stable Angina, Unstable Angina, STEMI, NSTEMI Aortic Dissection, Pneumothorax, Musculoskeletal, Esophageal Spasm GERD, Cholecystitis, Pancreatitis, Zoster This is not meant to be an all-inclusive list. EKG interpreted by me (3pts min.). @ -As above X-rays interpreted by me (1pt min.). @ -Chest x-ray shows no acute process CT interpreted by me (1pt min.). @ -None done U/S interpreted by me (1pt. min.). @ -None done What testing was considered but not performed or refused? (CT, X-rays, U/S, labs)? Why? @ -None What meds were considered but not given or refused? Why? @ -None Did you discuss the management of the patient with other professionals (professionals i.e. DrDarnell, PA, STEEL FAB[employer]ICATING SUPERVISOR, lab, RT, psych nurse, forensic social worker, ticker maintainer, teacher, customer service security officer, caser up)? Give summary @ -I spoke with Dr. Souza who accepted admission Was smoking cessation discussed for >3mins.? @ -No Was critical care preformed (if so, how long)? @ -No Were there social determinants of health that impacted care today? How? (Homelessness, low income, unemployed, alcoholism, drug addiction, transportation, low edu. Level, literacy, decrease access to med. care, skilled nursing, rehab)? @ -No Was there de-escalation of care discussed even if they declined (Discuss DNR or withdrawal of care, Hospice)? DNR status @ -No What co-morbidities impacted this encounter? (DM, HTN, Smoking, COPD, CAD, Cancer, CVA, ARF, Chemo, Hep., AIDS, mental health diagnosis, sleep apnea, morbid obesity)? @ -CAD Was patient admitted / discharged? Hospital course, mention meds given and route, prescriptions, significant lab abnormalities, going to OR and other pertinent info. @ -68-year-old female with history COPD presenting with chief complaint of chest pain that started yesterday. Physical exam is conducted. Patient has essentially negative chest pain workup including negative troponin, EKG, and chest x-ray. She'll be admitted for observation and evaluation by cardiology in the morning. She is agreeable with this plan. I discussed this case with my attending Dr. Davis Undiagnosed new problem with uncertain prognosis? @ -No Drug Therapy requiring intensive monitoring for toxicity (Heparin, Nitro, Insulin, Cardizem)? @ -No Were any procedures done? @ -No Diagnosis/symptom? @ -chest pain Acute, or Chronic, or Acute on Chronic? @ -Acute Uncomplicated (without systemic symptoms) or Complicated (systemic symptoms)? @ -Complicated Side effects of treatment? @ -No Exacerbation, Progression, or Severe Exacerbation? @ -No Poses a threat to life or bodily function? How? (Chest pain, [place], [place], pneumonia, PE, COPD, DKA, ARF, appy, cholecystitis, CVA, Diverticulitis, Homicidal, Suicidal, threat to staff... and all critical care pts) @ -yes Disposition Clinical Impression: Chest pain Disposition: ADMITTED IP TO THIS HOSP Condition: Fair Time of Disposition: 17:28
[2023-09-14 16:04] LABS: Basophils % (A) 0 %; Eosinophils # (A) 0.2 k/uL (0-0.7); Eosinophils % (A) 2 %; HCT 45.7 % (34.0-46.0); Lymphocytes # (A) 1.3 k/uL (1.0-4.8); Lymphocytes % (A) 18 %; MCH 30.8 pg (25.0-35.0); MCHC 32.8 g/dL (31.0-37.0); Mean Platelet Volume 9.5; Monocytes # (A) 0.3 k/uL (0-1.0); Monocytes % (A) 4 %; Neutrophils # (A) 5.7 k/uL (1.3-7.7); Neutrophils % (A) 75 %; Platelet Count 481 k/uL (150-450); RBC 4.86 m/uL (3.80-5.40); RDW 14.8 % (11.5-15.5); WBC 7.6 k/uL (3.8-10.6)
[2023-09-14 16:14] LABS: INR 1.3 (<1.2); Partial Thromboplastin Time 32.2 sec (22.0-30.0); Prothrombin Time 13.2 sec (10.0-12.5)
[2023-09-14 16:25] LABS: ALT 21 U/L (4-34); AST 26 U/L (14-36); African American GFR (CKD) 74 (>60 ml/min/1.73 sqM); Albumin 3.9 g/dL (3.5-5.0); Alkaline Phosphatase 113 U/L (38-126); Anion Gap 10 mmol/L; Blood Urea Nitrogen 23 mg/dL (7-17); Calcium 9.8 mg/dL (8.4-10.2); Carbon Dioxide 25 mmol/L (22-30); Chloride 108 mmol/L (98-107); Glucose 100 mg/dL (74-99); Magnesium 2.1 mg/dL (1.6-2.3); Non-African American GFR(CKD) 65 (>60 ml/min/1.73 sqM); Potassium 4.3 mmol/L (3.5-5.1); Sodium 143 mmol/L (137-145); Total Bilirubin 0.8 mg/dL (0.2-1.3)
[2023-09-14] MEDS ORDERED: NALOXONE 0.4 MG/ML 1 ML VIAL IV PRN (17:26)
[2023-09-14] MEDS ORDERED: ACETAMINOPHEN TAB 325 MG TAB PO PRN (17:26)
[2023-09-14] MEDS ORDERED: ASPIRIN 81 MG PO STA (17:27)
[2023-09-14] MEDS ORDERED: ARIPiprazole 10 MG TAB PO SCH (22:00)
[2023-09-14] MEDS: clonazePAM 0.5 MG TAB PO SCH (22:25)
[2023-09-14] MEDS: busPIRone HCl 5 MG TAB PO SCH (22:25)
[2023-09-15] MEDS: clonazePAM 0.5 MG TAB PO SCH (08:24)
[2023-09-15] MEDS: busPIRone HCl 5 MG TAB PO SCH (08:25)
[2023-09-15] MEDS ORDERED: atenoloL 50 MG TAB PO SCH (09:00)
[2023-09-15] MEDS ORDERED: FLUoxetine HCL 20 MG CAP PO SCH (09:00)
[2023-09-15] MEDS ORDERED: MONTELUKAST 10 MG TAB PO SCH (09:00)
[2023-09-15] MEDS ORDERED: FAMOTIDINE 20 MG TAB PO SCH (09:00)
[2023-09-15] MEDS ORDERED: FUROSEMIDE 40 MG TAB PO SCH (09:00)
[2023-09-15] MEDS ORDERED: LORATADINE 10 MG TAB PO SCH (09:00)
[2023-09-15] MEDS ORDERED: POTASSIUM CHLORIDE ER 10 MEQ TAB.ER.PRT PO SCH (09:00)
[2023-09-15] MEDS ORDERED: RIVAROXABAN 10 MG TAB PO SCH (09:00)
[2023-09-15] MEDS ORDERED: DOBUTamine DRIP for NUC MED 500 MG in DEXTROSE/WATER 1 250ML.BAG IV PRN (09:38)
[2023-09-15 11:19] LABS: Chol/HDL Ratio 3.71 Ratio; LDL Cholesterol,Calculated 64.4 mg/dL (0.0-131.0)
--- NOTE | 2023-09-15 11:53 | CA ---
Dobutamine Stress Echocardiogram Report Dottie Rose Age: 68 Gender: F : 1955 Exam Date: 09/15/2023 10:13 Exam Location: [facility] Ordering Physician: Luisa De Los Santos Referring Physician: Filiberto DELACRUZ Sky Cap: ANAYA, Technologist: Ht (in): 61 Wt (lb): 218 Procedure CPT: Indication: CP ICD-9 Codes: Rhythm: Patient History: Chest pain and shortness of breath Cardiac Medications: Medications in past 24 hours: Contrast: Total Dose (mL): Stress Results Protocol: Dobutamine Peak Dose (???g/kg/min): 30 Duration (min:sec): Atropine:(mg) Target HR: 128 Double Product: [id number] Resting HR: 61 Resting BP: 117 / 62 Peak HR: 129 Peak BP: 167 / 80 Max Predicted HR: 151 85 % Max Predicted HR Stress Summary: BP Response: Reason for Termination: Target HR Cardiac Symptoms: NO SYMPTOMS ECG Analysis Resting EKG: Stress EKG: Arrhythmia: Echo Analysis Base Echo Analysis: Low Echo Anaylsis: Peak Echo Analysis: Recovery Echo: MEASUREMENTS (Male/Female) Normal Values CONCLUSIONS Normal dobutamine stress echo Excellent augmentation of overall LV contractility without developed any wall motion abnormalities Baseline artifact on the EKG Dr. Mike Rivas MD (Electronically Signed) Final Date: 15 September 2023 11:52
--- NOTE | 2023-09-15 12:56 | P.CRDCN ---
History of Present Illness Consult date: 09/15/23 Consult reason: chest pain History of present illness: History of present illness: This is a 68-year-old female with past medical history of hypertension, dyslipidemia, pulmonary embolism in 2007 on Xarelto, gastroesophageal reflux disease. Patient has had shortness of breath and nonproductive cough for the past 7 days. She had onset of chest pain that started night before last in the midsternal area and went out to both sides. Pains been on and off. Last night it started when she walked out of the bathroom. EKG no acute ST-T wave changes Chest x-ray: No acute process WBC 7.6, hemoglobin 15, platelet count 481. INR 1.3. D-dimer 0.53. Sodium 143, potassium 4.3, creatinine 0.91. Troponin negative 3. A1c 5.5. Triglycerides 142, cholesterol 127, LDL 64, HDL 34. Influenza A, influenza B, RSV, Covid 18 not detected. Home cardiac medications: Atenolol 50 mg daily, Lasix 40 mg daily, pravastatin 40 mg at bedtime, Xarelto 10 mg daily, co-every 10 daily Normal dobutamine stress echo Review Of Systems: At the time of my evaluation: Constitutional: No fever, no chills. No weakness, fatigue or lethargy. EENT: No headache. No dizziness. Lungs: Reports shortness of breath, reports cough, no sputum production. No wheezing. Cardiovascular: Reports chest pain, no lower extremity edema. No palpitations. No paroxysmal nocturnal dyspnea. No orthopnea. No lightheadedness or dizziness. No syncopal episodes. Abdominal: No abdominal pain. No nausea, vomiting. No diarrhea. No constipation. No bloody or tarry stools. Genitourinary: No dysuria.. No urinary retention. Musculoskeletal: No myalgias. No muscle weakness, no frequent falls. No back pain. No neck pain. Integumentary: No wounds. No rash. No unusual bruising. Neurologic: No aphasia. No facial droop. No change in mentation. No head injury. No headache. Physical examination: Gen: This is a 68-year-old morbidly obese female resting in bed and appears to be in no acute distress. VS: reviewed HEENT: Head is atraumatic, normocephalic. Pupils equal, round. Sclerae is anicteric. NECK: Supple. No JVD. . LUNGS: Clear to auscultation. No wheezes or rhonchi. No intercostal retractions. HEART: Regular rate and rhythm. No murmur. ABDOMEN: Soft No tenderness. EXTREMITIES: No pedal edema. No calf tenderness. NEUROLOGICAL: Patient is awake, alert and oriented x3. Assessment: Acute coronary syndrome ruled out Chest pain most likely secondary to bronchitis or upper respiratory infection Hypertension Dyslipidemia History of pulmonary embolism Gastroesophageal reflux disease Plan: Patient is cleared for discharge Thank you kindly for this consultation. Nurse practitioner note has been reviewed, I agree with documented findings and plan of care. Patient was seen and examined. Past Medical History Past Medical History: Chest Pain / Angina, Heart Failure, COPD, Myocardial Infarction ([place]), Pulmonary Embolus (PE) Additional Past Medical History / Comment(s): kidney cancer, recent UTI treated with antibiotics. per clearance hx of tremors,closed head injury,hypertension and asthma Last Myocardial Infarction Date:: 2007 History of Any Multi-Drug Resistant Organisms: None Reported Past Surgical History: Section, Orthopedic Surgery Additional Past Surgical History / Comment(s): ortho surgery on right foot and both knees. Past Anesthesia/Blood Transfusion Reactions: Postoperative Nausea & Vomiting (PONV) Past Psychological History: Anxiety, Depression Smoking Status: Never smoker Past Alcohol Use History: None Reported Past Drug Use History: None Reported - Past Family History Father Additional Family Medical History / Comment(s): enlarged heart, cartoid artery exploded Medications and Allergies Home Medications Medication Instructions Recorded Confirmed Type Albuterol Sulfate [Proair Hfa] 1 - 2 puff INHALATION RT-QID PRN 11/18/14 09/14/23 History FLUoxetine HCL [PROzac] 40 mg PO BID 11/18/14 09/14/23 History Montelukast [Singulair] 10 mg PO DAILY 11/18/14 09/14/23 History Omeprazole [PriLOSEC] 20 mg PO BID 11/18/14 09/14/23 History Pravastatin Sodium [Pravachol] 40 mg PO HS 11/18/14 09/14/23 History traZODone HCL 50 mg PO HS 11/18/14 09/14/23 History Levocetirizine Dihydrochloride 5 mg PO DAILY 07/20/20 09/14/23 History [Xyzal] Rivaroxaban [Xarelto] 10 mg PO DAILY 07/20/20 09/14/23 History Famotidine [Pepcid] 20 mg PO DAILY 07/24/20 09/14/23 History ARIPiprazole [Abilify] 10 mg PO HS 09/14/23 09/14/23 History Atenolol [Tenormin] 50 mg PO DAILY 09/14/23 09/14/23 History Furosemide [Lasix] 40 mg PO DAILY 09/14/23 09/14/23 History Multivitamins, Thera [Multivitamin 1 tab PO DAILY 09/14/23 09/14/23 History (formulary)] Potassium Chloride ER [K-Dur 10] 10 meq PO DAILY 09/14/23 09/14/23 History Ubidecarenone [Coenzyme Q10] 100 mg PO DAILY 09/14/23 09/14/23 History busPIRone HCL 15 mg PO TID 09/14/23 09/14/23 History clonazePAM [KlonoPIN] 0.5 mg PO TID 09/14/23 09/14/23 History Allergies Allergy/AdvReac Type Severity Reaction Status Date / Time cephalexin monohydrate Allergy Rash/Hives Verified 09/14/23 19:07 [From Keflex] codeine Allergy Unknown Verified 09/14/23 19:07 Penicillins Allergy Rash/Hives Verified 09/14/23 19:07 Sulfa (Sulfonamide Allergy Rash, Verified 09/14/23 19:07 Antibiotics) hives, Nausea & Vomiting & Diarrhea sulfamethoxazole Allergy Rash, Verified 09/14/23 19:07 [From Bactrim] hives, Nausea & Vomiting & Diarrhea trimethoprim [From Bactrim] Allergy Rash, Verified 09/14/23 19:07 hives, Nausea & Vomiting & Diarrhea Physical Exam Vitals: Vital Signs Temp Pulse Resp BP Pulse Ox 09/15/23 06:30 56 L 16 119/67 96 09/15/23 06:00 58 L 16 123/73 95 09/15/23 05:00 52 L 18 126/72 94 L 09/15/23 04:00 57 L 18 122/71 95 09/15/23 03:00 52 L 15 121/64 96 09/15/23 01:30 54 L 13 108/60 95 09/15/23 00:30 56 L 14 120/69 96 09/14/23 23:30 64 20 143/71 96 09/14/23 22:30 58 L 13 136/74 96 09/14/23 22:27 57 L 18 136/74 97 09/14/23 22:00 51 L 11 L 124/72 95 09/14/23 21:02 57 L 18 124/72 98 09/14/23 21:01 55 L 20 146/117 97 09/14/23 18:02 55 L 18 123/74 95 09/14/23 14:37 96.9 F L 66 16 145/75 96 Results 09/14/23 15:35 09/14/23 15:35 Cardiac Enzymes 09/14/23 09/14/23 09/14/23 Range/Units 15:35 15:35 18:08 AST 26 (14-36) U/L Troponin I <0.012 <0.012 (0.000-0.034) ng/mL 09/14/23 Range/Units 20:37 AST (14-36) U/L Troponin I <0.012 (0.000-0.034) ng/mL Coagulation 09/14/23 Range/Units 15:35 PT 13.2 H (10.0-12.5) sec APTT 32.2 H (22.0-30.0) sec CBC 09/14/23 Range/Units 15:35 WBC 7.6 (3.8-10.6) k/uL RBC 4.86 (3.80-5.40) m/uL Hgb 15.0 (11.4-16.0) gm/dL Hct 45.7 (34.0-46.0) % Plt Count 481 H (150-450) k/uL Comprehensive Metabolic Panel 09/14/23 Range/Units 15:35 Sodium 143 (137-145) mmol/L Potassium 4.3 (3.5-5.1) mmol/L Chloride 108 H (98-107) mmol/L Carbon Dioxide 25 (22-30) mmol/L BUN 23 H (7-17) mg/dL Creatinine 0.91 (0.52-1.04) mg/dL Glucose 100 H (74-99) mg/dL Calcium 9.8 (8.4-10.2) mg/dL AST 26 (14-36) U/L ALT 21 (4-34) U/L Alkaline Phosphatase 113 (38-126) U/L Total Protein 7.0 (6.3-8.2) g/dL Albumin 3.9 (3.5-5.0) g/dL Current Medications Generic Name Dose Route Start Last Admin Trade Name Freq PRN Reason Stop Dose Admin Acetaminophen 650 mg 09/14/23 17:26 Acetaminophen Tab 325 Mg Tab PO Q6HR PRN Mild Pain or Fever > 100.5 Aripiprazole 10 mg 09/14/23 22:00 09/14/23 22:25 Aripiprazole 10 Mg Tab PO 10 mg HS [facility] Administration Atenolol 50 mg 09/15/23 09:00 Atenolol 50 Mg Tab PO DAILY [facility] Buspirone HCl 15 mg 09/14/23 22:00 09/14/23 22:25 Buspirone Hcl 5 Mg Tab PO 15 mg TID [facility] Administration Clonazepam 0.5 mg 09/14/23 22:00 09/14/23 22:25 Clonazepam 0.5 Mg Tab PO 0.5 mg TID [facility] Administration Famotidine 20 mg 09/15/23 09:00 Famotidine 20 Mg Tab PO DAILY [facility] Fluoxetine HCl 40 mg 09/15/23 09:00 Fluoxetine Hcl 20 Mg Cap PO BID [facility] Furosemide 40 mg 09/15/23 09:00 Furosemide 40 Mg Tab PO DAILY [facility] Loratadine 10 mg 09/15/23 09:00 Loratadine 10 Mg Tab PO DAILY [facility] Montelukast Sodium 10 mg 09/15/23 09:00 Montelukast 10 Mg Tab PO DAILY [facility] Naloxone HCl 0.2 mg 09/14/23 17:26 Naloxone 0.4 Mg/Ml 1 Ml Vial IV Q2M PRN Opioid Reversal Potassium Chloride 10 meq 09/15/23 09:00 Potassium Chloride Er 10 Meq Tab.Er.Prt PO DAILY [facility] Rivaroxaban 10 mg 09/15/23 09:00 Rivaroxaban 10 Mg Tab PO DAILY [facility] Protocol Trazodone HCl 50 mg 09/15/23 21:00 Trazodone Hcl 50 Mg Tab PO HS [facility] 09/14/23 15:35 09/14/23 15:35
[2023-09-15 15:55] VITALS: BP 103/62; PULSE 74; RESP 16; TEMP 97.8
[2023-09-15] MEDS ORDERED: traZODone HCL 50 MG TAB PO SCH (21:00)
== END 2023-09-15 16:01 | disposition home or self-care (01) ==
LOC: SUPCPDRO 14:34 → EC 14:34 → 6NMEDSUR 19:25
PROVIDERS: ADMIT Family Medicine; ATTEND Family Medicine
DX: R07.9 Chest pain, unspecified (principal); E78.5 Hyperlipidemia, unspecified; K21.9 Gastro-esophageal reflux disease without esophagitis; I11.0 Hypertensive heart disease with heart failure; I50.9 Heart failure, unspecified; J44.9 Chronic obstructive pulmonary disease, unspecified; F32.A Depression, unspecified; F41.9 Anxiety disorder, unspecified; I25.2 Old myocardial infarction; Z20.822 Contact with and (suspected) exposure to COVID-19; Z85.528 Personal history of other malignant neoplasm of kidney; Z86.711 Personal history of pulmonary embolism; Z79.01 Long term (current) use of anticoagulants; Z79.899 Other long term (current) drug therapy; Z88.0 Allergy status to penicillin; Z88.1 Allergy status to other antibiotic agents; Z88.2 Allergy status to sulfonamides; Z88.5 Allergy status to narcotic agent
CPT/HCPCS: 99285; 36415; 93005; 85379; 80061; 80053; 83735; 84484; 85025; 85610; 85730; 83036; 87636; 71046; G0378 ×2; C8930; Q9950; 93351

== ENCOUNTER → 2024-06-25 | Outpatient (CLI) | payer MEDICARE ==
[2024-06-25 18:19] LABS: Basophils # (A) 0.04 X 10*3/uL (0.00-0.10); Basophils % (A) 0.4 %; Eosinophils # (A) 0.09 X 10*3/uL (0.04-0.35); HCT 48.6 % (37.2-46.3); HGB 15.7 g/dL (12.0-15.0); Lymphocytes # (A) 1.65 X 10*3/uL (0.90-5.00); Lymphocytes % (A) 17.7 %; MCH 30.3 pg (27.0-32.0); MCHC 32.3 g/dL (32.0-37.0); MCV 93.8 FL (80.0-97.0); Monocytes # (A) 0.47 X 10*3/uL (0.20-1.00); Monocytes % (A) 5.1 %; NRBC Per 100 WBC 0 X 10*3/uL (0.00-0.01); Neutrophils # (A) 7.01 X 10*3/uL (1.80-7.70); Neutrophils % (A) 75.4 %; Platelet Count 647 X 10*3/uL (140-440); RBC 5.18 X 10*6/uL (4.10-5.20); RDW 15.8 % (11.5-14.5)
[2024-06-25 18:22] LABS: ALT 25 U/L (8-44); AST 30 U/L (13-35); Albumin 4.2 g/dL (3.8-4.9); Alkaline Phosphatase 154 U/L (41-126); BUN/Creat Ratio 12.36 Ratio (12.00-20.00); Blood Urea Nitrogen 17.3 mg/dL (9.0-27.0); Calcium 9.8 mg/dL (8.7-10.3); Carbon Dioxide 21.6 mmol/L (21.6-31.8); Chloride 106 mmol/L (96-109); Globulin 2.8 g/dL (1.6-3.3); Glucose 74 mg/dL (70-110); Potassium 5.4 mmol/L (3.5-5.5); Sodium 141 mmol/L (135-145); Total Bilirubin 0.8 mg/dL (0.3-1.2)
[2024-06-25 21:38] LABS: Erythrocyte Sedimentation Rate 20 mm/Hr (0-30)
[2024-06-25 22:20] LABS: Gliadin AB IgA, Deaminated Negative (Negative); Gliadin AB IgA, Unit <0.5 U/mL; Gliadin AB IgG, Deaminated Negative (Negative); Gliadin AB IgG, Unit <0.4 U/mL
== END | disposition home or self-care (01) ==
LOC: LABWHC1 15:03
PROVIDERS: ATTEND Internal Medicine Gastroenterology
DX: K52.9 Noninfective gastroenteritis and colitis, unspecified (principal)
CPT/HCPCS: 36415; 80053; 83516; 85025; 85652; 86140

== ENCOUNTER 2024-07-10 06:00 | Day surgery (SDC) | payer MEDICARE ==
[2024-07-10] MEDS ORDERED: LACTATED RINGERS 1,000 ML BAG ONE (07:15)
[2024-07-10] MEDS ORDERED: PROPOFOL 10 MG/ML 20 ML VIAL IV ONE (07:30)
[2024-07-10] MEDS ORDERED: GLYCOPYRROLATE 0.2 MG/ML 2 ML VIAL ONE (07:30)
--- NOTE | 2024-07-19 15:53 | PCN ---
PROCEDURE NOTE REQUESTING PHYSICIAN: Dr. Anna Zavala. BRIEF HISTORY: The patient is a -cfdt-oti pleasant while female, scheduled for elective colonoscopy as part of evaluation of longstanding history of GERD and chronic diarrhea for the last several days duration. The symptoms have been progressively getting worse for the last 6 months with bowel movements anywhere from 3 to 7 a day, which are loose to watery in consistency with no blood or mucus in the stool. She is scheduled for an upper endoscopy as well as colonoscopy to evaluate further. PROCEDURE PERFORMED: 1. EGD with biopsy. 2. Colonoscopy with biopsy and snare polypectomy. PREOPERATIVE DIAGNOSIS: Gastroesophageal reflux disease and chronic diarrhea. ANESTHESIA: IV sedation per Anesthesia. DESCRIPTION OF PROCEDURE: After informed consent was obtained from the patient, she was brought to the endoscopy unit. IV conscious sedation was administered by Anesthesia and continuous monitoring. Initially, upper endoscopy was done. The Olympus CF-190 video colonoscope was then inserted into the mouth and esophagus, intubated without any difficulty, and was gradually advanced into the stomach and duodenum and carefully examined. Biopsies were done from the duodenum to evaluate for celiac disease. Scope was then withdrawn to the stomach adequately insufflated with air. On careful examination, there was diffuse gastritis and biopsies were done in the antrum. Body of the stomach appeared normal. On retroflexion, cardia and fundus appeared normal. Scope was then withdrawn from the esophagus. The GE junction was located at 40 cm from the incisors. It appeared regular with no edema, erosions, or ulcerations. Entire length of esophagus appeared normal. The patient tolerated the procedure well. She continued to remain sedated. At this time, a colonoscopy was done. The distal rectal examination was normal. The Olympus CF-180 video colonoscope was entered into the rectum, gradually advanced into the cecum. Careful examination was performed. The scope was gradually being withdrawn. The ileocecal valve and appendiceal office were visualized and appeared normal. The prep was fair. In the cecum, there was large amount of thick stool with debris, could not be irrigated, but the visualized portions of the cecum appeared normal. In the ascending colon, there was a 1 cm polyp removed by snare polypectomy. In the transverse colon, there was a 5 mm polyp, removed by cold biopsy. In the sigmoid colon, there was a 1 cm polyp, removed by snare polypectomy. Random biopsies were done from the ascending and descending colon to rule out microscopic/collagenous colitis. Rest of the sigmoid colon and rectum appeared normal. In the rectum, retroflexion was performed. No lesions were noted. The patient tolerated the procedure well. IMPRESSION: 1. Upper endoscopy revealed mild diffuse gastritis, no evidence of esophagitis or peptic ulcer disease. 2. Colonoscopy revealed 1 cm ascending colon polyp, status post snare polypectomy. 3 mm transverse colon polyp, status post cold biopsy. 1 cm sigmoid colon polyp, status post snare polypectomy. RECOMMENDATIONS: Findings of this examination were discussed with the patient as well as the family. She was advised to follow up with the biopsy results. If the biopsy reveals adenoma, I recommend a repeat colonoscopy in 3 years. Follow up in the office in 2 weeks. MMODL / IJN: [id number] /
== END 2024-07-10 08:25 ==
LOC: ORWHC2ENDO 06:00
PROVIDERS: ATTEND Internal Medicine Gastroenterology
DX: D12.2 Benign neoplasm of ascending colon (principal); D12.3 Benign neoplasm of transverse colon; D12.4 Benign neoplasm of descending colon; D12.5 Benign neoplasm of sigmoid colon; D72.820 Lymphocytosis (symptomatic); K29.50 Unspecified chronic gastritis without bleeding; K29.80 Duodenitis without bleeding; K52.9 Noninfective gastroenteritis and colitis, unspecified; K21.9 Gastro-esophageal reflux disease without esophagitis; I10 Essential (primary) hypertension; E78.5 Hyperlipidemia, unspecified; F41.8 Other specified anxiety disorders; Z79.01 Long term (current) use of anticoagulants; Z79.899 Other long term (current) drug therapy; Z88.0 Allergy status to penicillin
CPT/HCPCS: 43239; 45385; 88305; 88342